=== PATIENT | female | born 1970 | race Caucasian/White ===

== ENCOUNTER 2018-02-06 07:48 | Observation (INO) ==
--- NOTE | 2018-02-06 08:41 | ED ---
HPI General Chief Complaint: Chest Pain Stated Complaint: Headache/Chest pain Time Seen by Provider: 02/06/18 08:29 History of Present Illness HPI narrative: The patient was seen and examined in the presence of the nurse. This patient complains of chest pain. She reported felt like a weight sitting on her chest. It was a heavy pressure located in the center sternum. Patient was seen here 3 weeks ago for chest pain but described a very different chest pain then. Severity is moderate. No alleviating factors. No exacerbating factors. Duration 1 day. Patient is primarily Albanian speaker. We will utilize formal translation. Complete Quality Measures for STEMI Alert Patients Related Data Home Medications Medication Instructions Recorded Confirmed metformin 1,000 mg PO BID 01/12/18 02/06/18 sitagliptin [Januvia] 25 mg PO DAILY 01/12/18 02/06/18 Previous Rx's Medication Instructions Recorded albuterol sulfate 2 inh INHALATION Q4-6H PRN #6.7 g 01/13/18 ciprofloxacin HCl [Cipro] 500 mg PO Q12H #14 tab 01/13/18 Allergies Allergy/AdvReac Type Severity Reaction Status Date / Time Penicillins Allergy Anaphylaxis Verified 02/06/18 08:08 Review of Systems Except as stated in HPI: all other systems reviewed are negative [facility] Medical History Medical History Diabetes (Acute) Asthma (Acute) Surgical History Surgical History Hx of appendectomy (Acute) History of partial hysterectomy (Acute) Social History Social History Substance History: No History of Abuse Second Hand Smoke Exposure: No Smoking Status: Never smoker How Often Do You Have a Drink Containing Alcohol: Never Recent Travel in [facility] within the Last 8 Weeks: No Recent Out of Country Travel within the Last 8 Weeks: No Immunization History Tetanus Immunization: Unsure Hx Influenza Vaccine This Season: Yes Exam Narrative Exam Narrative: GENERAL: Well-nourished, well-developed patient in no apparent distress. SKIN: Focused skin assessment reveals no rash and nodules. Skin is Warm and dry. HEAD: Atraumatic. Normocephalic. EYES: Pupils equal and round. No scleral icterus. No injection or drainage. ENT: No nasal bleeding or discharge. Mucous membranes pink and moist. NECK: Trachea midline. No JVD. CARDIOVASCULAR: Regular rate and rhythm. No murmur appreciated. RESPIRATORY: No accessory muscle use. Clear to auscultation. Breath sounds equal bilaterally. GASTROINTESTINAL: Abdomen soft, non-tender, nondistended. Hepatic and splenic margins not palpable. MUSCULOSKELETAL: No obvious deformities. No clubbing. No cyanosis. No edema. Some chest wall tenderness but cannot convincingly say that is her specific chest pain NEUROLOGICAL: Awake and alert. No obvious cranial nerve deficits. Motor grossly within normal limits. Normal speech. PSYCHIATRIC: Appropriate mood and affect; insight and judgment normal. Course Initial Documented Vital Signs Temperature 98.4 F 02/06/18 07:51 Pulse Rate 102 H 02/06/18 07:51 Respiratory Rate 18 02/06/18 07:51 Blood Pressure 160/90 H 02/06/18 07:51 Pulse Oximetry 99 02/06/18 07:51 Last Documented Vital Signs Temperature 98.4 F 02/06/18 07:51 Pulse Rate 83 02/06/18 11:14 Respiratory Rate 19 02/06/18 11:14 Blood Pressure 116/78 02/06/18 11:14 Pulse Oximetry 98 02/06/18 11:14 Medical Decision Making MDM Narrative Medical decision making narrative: IV placed and labs sent. I gave her aspirin. I reviewed her EKG which shows a normal EKG. I reviewed her chest x- ray which is normal Cardiac enzymes are normal. She has some mild hyperglycemia.She has risk factors for cardiac disease. The pain is not as atypical as it was 3 weeks ago and she was discharged from the ER and is entirely different. She will be a 23 hour observation on telemetry in the chest pain center in order to rule out cardiac cause of her symptoms. Differential Diagnosis Differential Diagnosis: Differential diagnosis includes TX, angina, pericarditis , pleurisy, GERD, anxiety. Medical Records Medical records reviewed: Yes I reviewed the patient's medical records. Reviewed her visit from January 13, 2018 for chest pain. Lab Data Result diagrams: 02/06/18 08:45 02/06/18 08:45 Lab Results 02/06/18 02/06/18 02/06/18 Range/Units 08:43 08:45 08:45 WBC 11.3 H (4.0-11.0) th/mm3 RBC 5.31 H (4.00-5.30) mil/mm3 Hgb 14.8 (11.6-15.3) gm/dL Hct 43.4 (35.0-46.0) % MCV 81.8 (80.0-100.0) fL MCH 27.9 (27.0-34.0) pg MCHC 34.1 (32.0-36.0) % RDW 12.9 (11.6-17.2) % Plt Count 256 (150-450) th/mm3 MPV 10.3 (7.0-11.0) fL Neut % (Auto) 77.1 H (16.0-70.0) % Lymph % (Auto) 17.6 (9.0-44.0) % [place] % (Auto) 4.3 (0.0-8.0) % Eos % (Auto) 0.8 (0.0-4.0) % Baso % (Auto) 0.2 (0.0-2.0) % Neut # (Auto) 8.7 H (1.8-7.7) th/mm3 Lymph # (Auto) 2.0 (1.0-4.8) th/mm3 [place] # (Auto) 0.5 (0.0-0.9) th/mm3 Eos # (Auto) 0.1 (0.0-0.4) th/mm3 Baso # (Auto) 0.0 (0.0-0.2) th/mm3 WBC Differential . Differential Comment Auto diff final PT 12.1 H (9.8-11.6) sec INR 1.2 Ratio APTT 25.9 (24.3-30.1) sec Sodium (136-145) meq/L Potassium (3.5-5.1) meq/L Chloride (98-107) meq/L Carbon Dioxide (21.0-32.0) meq/L Anion Gap (5-15) meq/L BUN (7-18) mg/dL Creatinine (0.50-1.00) mg/dL Estimated GFR (>89) mL/min POC Glucose 285 H (68-110) mg/dl Random Glucose (74-106) mg/dL Calcium (8.5-10.1) mg/dL Total Creatine Kinase (26-192) U/L Troponin I (0.02-0.05) ng/mL 02/06/18 02/06/18 Range/Units 08:45 08:45 WBC (4.0-11.0) th/mm3 RBC (4.00-5.30) mil/mm3 Hgb (11.6-15.3) gm/dL Hct (35.0-46.0) % MCV (80.0-100.0) fL MCH (27.0-34.0) pg MCHC (32.0-36.0) % RDW (11.6-17.2) % Plt Count (150-450) th/mm3 MPV (7.0-11.0) fL Neut % (Auto) (16.0-70.0) % Lymph % (Auto) (9.0-44.0) % [place] % (Auto) (0.0-8.0) % Eos % (Auto) (0.0-4.0) % Baso % (Auto) (0.0-2.0) % Neut # (Auto) (1.8-7.7) th/mm3 Lymph # (Auto) (1.0-4.8) th/mm3 [place] # (Auto) (0.0-0.9) th/mm3 Eos # (Auto) (0.0-0.4) th/mm3 Baso # (Auto) (0.0-0.2) th/mm3 WBC Differential Differential Comment PT (9.8-11.6) sec INR Ratio APTT (24.3-30.1) sec Sodium 137 (136-145) meq/L Potassium 3.6 (3.5-5.1) meq/L Chloride 102 (98-107) meq/L Carbon Dioxide 26.1 (21.0-32.0) meq/L Anion Gap 9 (5-15) meq/L BUN 7 (7-18) mg/dL Creatinine 0.61 (0.50-1.00) mg/dL Estimated GFR Greater than 89 (>89) mL/min POC Glucose (68-110) mg/dl Random Glucose 246 H (74-106) mg/dL Calcium 9.6 (8.5-10.1) mg/dL Total Creatine Kinase 45 (26-192) U/L Troponin I Less than 0.02 L (0.02-0.05) ng/mL Imaging Data Radiologist's impression: Chest X-Ray 02/06/18 08:35 CONCLUSION: 1. No acute cardiopulmonary disease. Discharge Plan Discharge Disposition Patient Disposition: 30 Still Patient Discharge Condition Condition: Stable Discharge Details Diagnosis: Chest pain in adult Physicians Team ED Provider: Manish Larsen Primary Care Provider: UNKNOWN, Rxs /Orders / Referrals /Forms Prescriptions: No Action sitagliptin [Januvia] 25 mg Tablet 25 mg PO DAILY RF: 0 metformin 1,000 mg Tablet 1,000 mg PO BID RF: 0 albuterol sulfate 90 mcg/actuation HFA aerosol inhaler 2 inh INHALATION Q4-6H PRN (Reason: shortness of breath or wheezing) Qty: 6.7 RF: 0 ciprofloxacin HCl [Cipro] 500 mg tablet 500 mg PO Q12H Qty: 14 RF: 0 Discharge Instructions Patient Printed Instructions: Chest Pain (ED) Discharge Interventions Interventions: Vital Signs Last Done: 02/06/18 08:54 Status ED Status: With Doctor
--- NOTE | 2018-02-06 09:04 | XR ---
EXAM DATE: 02/06/2018 9:01 AM EDT AGE/SEX: 47 years / Female INDICATIONS: Chest pain. CLINICAL DATA: This is the patient's initial encounter. Patient reports that signs and symptoms have been present for 2 days and indicates a pain score of 1/10. MEDICAL/SURGICAL HISTORY: . Chest pain for two days. No history of surgery or heart or lung pro blems. Non smoker. None. COMPARISON: [facility] [place] 1V SINGLE AP, 01/12/2018. . FINDINGS: A single AP view of the chest demonstrates the lungs to be symmetrically aerated without evidence of mass, infiltrate or effusion. The cardiomediastinal contours are unremarkable. Osseous structures a re intact. CONCLUSION: 1. No acute cardiopulmonary disease. Electronically signed by: Shad Pineda MD 02/06/2018 9:02 AM EDT
--- NOTE | 2018-02-06 09:39 | ECG ---
Date Performed: 02/06/2018 Time Performed: 08:40:34 PTAGE: 47 years EKG: Sinus rhythm NORMAL ECG PREVIOUS TRACING : 01/12/2018 19.23 No significant change from previous tracing noted. DOCTOR: Ankit Doe Interpretating Date/Time 02/06/2018 09:38:09
[2018-02-06 09:40] LABS: Baso % (Auto) 0.2 % (0.0-2.0); Eos # (Auto) 0.1 th/mm3 (0.0-0.4); Eos % (Auto) 0.8 % (0.0-4.0); Hematocrit 43.4 % (35.0-46.0); Hemoglobin 14.8 gm/dL (11.6-15.3); Lymph % (Auto) 17.6 % (9.0-44.0); Mean Corpuscular HGB Conc 34.1 % (32.0-36.0); Mean Corpuscular Hemoglobin 27.9 pg (27.0-34.0); Mean Corpuscular Volume 81.8 fL (80.0-100.0); Mean Platelet Volume 10.3 fL (7.0-11.0); Mono # (Auto) 0.5 th/mm3 (0.0-0.9); Mono % (Auto) 4.3 % (0.0-8.0); Neut # (Auto) 8.7 th/mm3 (1.8-7.7); Neut % (Auto) 77.1 % (16.0-70.0); Platelet Count 256 th/mm3 (150-450); Red Blood Count 5.31 mil/mm3 (4.00-5.30); Red Cell Distribution Width 12.9 % (11.6-17.2); White Blood Count 11.3 th/mm3 (4.0-11.0)
[2018-02-06 09:48] LABS: Activated Partial Thrombo Time 25.9 sec (24.3-30.1); INR 1.2 Ratio; Prothrombin Time 12.1 sec (9.8-11.6)
[2018-02-06 09:55] LABS: Anion Gap 9 meq/L (5-15); Blood Urea Nitrogen 7 mg/dL (7-18); Calcium 9.6 mg/dL (8.5-10.1); Carbon Dioxide 26.1 meq/L (21.0-32.0); Chloride 102 meq/L (98-107); Glomerular Filtration Rate Greater Than 89 mL/min (>89); Glucose,Random 246 mg/dL (74-106); Potassium 3.6 meq/L (3.5-5.1); Sodium 137 meq/L (136-145)
[2018-02-06 11:24] VITALS: O2SAT 98
[2018-02-06] MEDS ORDERED: Acetaminophen 500 MG Tablet PO PRN (11:53)
[2018-02-06] MEDS ORDERED: Dextrose 50% in Water 50 ML Vial IV.PUSH PRN (12:21)
[2018-02-06] MEDS ORDERED: Ketorolac Inj 30 MG/ML (IVP) Vial IV.PUSH ONE (13:43)
--- NOTE | 2018-02-06 13:43 | P.HPCA ---
History of Present Illness Primary Care Physician: UNKNOWN Chief Complaint: Chest pain History of Present Illness: 47 year old female with history of diabetes presents to ER for further evaluation of chest pain. Onset 2 days ago. Location left anterior chest. Characterized as tightness. No radiation. No associated symptoms of nausea, vomiting, dyspnea, or diaphoresis. No precipitating or relieving factors. No recent injury or illness. Nepalese speaking, utilized translating medical service during interview. - Diagnosis (1) Chest wall pain (2) H/O diabetes mellitus Review of Systems All other systems reviewed negative except as stated in HPI PMFSH - History History Provided By: Patient - Medical History Medical History: Medical History (Last Updated 02/06/18 @ 08:05 by David Jennings) Diabetes Asthma - Surgical History Surgical History: Surgical History (Last Updated 02/06/18 @ 08:05 by David Jennings) Hx of appendectomy History of partial hysterectomy - Tobacco History Second Hand Smoke Exposure: No Tobacco Use In Past 30 Days: No Smoking Status: Never smoker - Alcohol History How Often Do You Have a Drink Containing Alcohol: Never - Substance Use History Substance History: No History of Abuse - Travel History Recent Travel in the [place] Within the Last 8 Weeks: No Recent Travel Out of the Country Within the Last 8 Weeks: No - Immunization History Tetanus Immunization: Unsure Hx Influenza Vaccine This Season: Yes Medications and Allergies Active Medications: Active Medications Acetaminophen (Tylenol) 500 mg PO Q4H PRN PRN Reason: HEADACHE Dextrose (D50w Vial) 50 ml IV.PUSH UNSCH PRN PRN Reason: PER HYPOGLYCEMIA PROTOCOL Glucagon (Glucagon Inj) 1 mg OTHER UNSCH PRN PRN Reason: for Hypoglycemia Protocol Insulin Aspart (Novolog Insulin Correctional Sugar Inj) 0 unit SQ ACHS DARYL; Protocol Nitroglycerin (Nitrostat Sl) 0.4 mg SL Q5M PRN PRN Reason: CHEST PAIN Sodium Chloride (Ns Flush) 2 ml IV.FLUSH UNSCH PRN PRN Reason: FLUSH AFTER USING IV ACCESS Sodium Chloride (Ns Flush) 2 ml IV.FLUSH BID DARYL Allergies Allergy/AdvReac Type Severity Reaction Status Date / Time Penicillins Allergy Anaphylaxis Verified 02/06/18 08:08 Home Medications Medication Instructions Recorded Confirmed Type metformin 1,000 mg PO BID 01/12/18 02/06/18 History sitagliptin [Januvia] 25 mg PO DAILY 01/12/18 02/06/18 History Exam Vital signs: Vital Signs 02/06/18 07:51 02/06/18 07:54 02/06/18 08:35 Temperature 98.4 F Pulse Rate 102 H 91 H 85 Respiratory Rate 18 18 Blood Pressure 160/90 H 133/90 133/90 Pulse Oximetry 99 98 98 02/06/18 08:54 02/06/18 09:47 02/06/18 11:14 Temperature Pulse Rate 98 H 83 Respiratory Rate 20 19 Blood Pressure 117/80 116/78 Pulse Oximetry 98 96 98 02/06/18 12:33 Temperature Pulse Rate 78 Respiratory Rate 20 Blood Pressure 113/72 Pulse Oximetry 98 Intake & Output 02/05/18 02/06/18 02/06/18 18:59 06:59 18:59 Weight 58.513 kg Narrative: GENERAL: Alert WN, WD, NAD, pleasant, Nepalese-speaking female HEAD: NC, AT NECK: Supple, no masses, trachea midline CV: RRR, without murmur, rub, gallop, no JVD. No carotid bruits. Chest wall easily reproduced with light palpation. RESP: Clear lungs throughout bilateral, no crackles, wheeze, rhonchi, symmetrical chest rise, nonlabored, able to speak in full sentences ABD: Soft, NT, ND, no masses, positive bowel tones EXT: Pulses +2x4, no dependent edema MS: Normal tone x4 extremities, nontender, no obvious deformities, full range of motion NEURO: CN II through CN XII grossly intact, motor strength 5/5 PSYCH: A+O x3, pleasant affect, appropriate speech, mood, insight and judgment SKIN: Normal turgor, normal texture, no lesions, no rashes, even hair distribution Results 02/06/18 08:45 02/06/18 08:45 Cardiac Enzymes 02/06/18 Range/Units 08:45 Troponin I Less than 0.02 L (0.02-0.05) ng/mL Coagulation 02/06/18 Range/Units 08:45 PT 12.1 H (9.8-11.6) sec APTT 25.9 (24.3-30.1) sec CBC 02/06/18 Range/Units 08:45 WBC 11.3 H (4.0-11.0) th/mm3 RBC 5.31 H (4.00-5.30) mil/mm3 Hgb 14.8 (11.6-15.3) gm/dL Hct 43.4 (35.0-46.0) % Plt Count 256 (150-450) th/mm3 Neut # (Auto) 8.7 H (1.8-7.7) th/mm3 Lymph # (Auto) 2.0 (1.0-4.8) th/mm3 [place] # (Auto) 0.5 (0.0-0.9) th/mm3 Eos # (Auto) 0.1 (0.0-0.4) th/mm3 Baso # (Auto) 0.0 (0.0-0.2) th/mm3 Comprehensive Metabolic Panel 02/06/18 Range/Units 08:45 Sodium 137 (136-145) meq/L Potassium 3.6 (3.5-5.1) meq/L Chloride 102 (98-107) meq/L Carbon Dioxide 26.1 (21.0-32.0) meq/L BUN 7 (7-18) mg/dL Creatinine 0.61 (0.50-1.00) mg/dL Calcium 9.6 (8.5-10.1) mg/dL Intake and Output 02/05/18 02/06/18 02/06/18 22:59 06:59 14:59 Other: Weight 58.513 kg Patient Weight 02/07/18 06:59 Weight 58.513 kg EKG interpretations - EKG EKG results cardiology: sinus rhythm, normal axis, normal QRS, normal ST/T Caprini VTE Risk Assessment Caprini VTE Risk Assessment: No/Low Risk (score <= 1) Caprini Risk Assessment Model: Point Value = 1 Point Value = 2 Point Value = 3 Point Value = 5 Age 41-60 Minor surgery BMI > 25 kg/m2 Swollen legs Varicose veins or History of unexplained or recurrent spontaneous Oral contraceptives or hormone replacement Sepsis (< 1 month) Serious lung disease, including pneumonia (< 1 month) Abnormal pulmonary function Acute myocardial infarction Congestive heart failure (< 1 month) History of inflammatory bowel disease Medical patient at bed rest Age 61-74 Arthroscopic surgery Major open surgery (> 45 min) Laparoscopic surgery (> 45 min) Malignancy Confined to bed (> 72 hours) Immobilizing plaster cast Central venous access Age >= 75 History of VTE Family history of VTE Factor V Leiden Prothrombin [id number] Lupus anticoagulant Anticardiolipin antibodies Elevated serum homocysteine Heparin-induced thrombocytopenia Other congenital or acquired thrombophilia Stroke (< 1 month) Elective arthroplasty Hip, pelvis, or leg fracture Acute spinal cord injury (< 1 month) Prophylaxis Regimen: Total Risk Factor Score Risk Level Prophylaxis Regimen 0-1 Low Early ambulation 2 Moderate Order ONE of the following: *Sequential Compression Device (SCD) *Heparin 5000 units SQ BID 3-4 Higher Order ONE of the following medications: *Heparin 5000 units SQ TID *Enoxaparin/Lovenox 40 mg SQ daily (WT < 150 kg, CrCl > 30 mL/min) *Enoxaparin/Lovenox 30 mg SQ daily (WT < 150 kg, CrCl > 10-29 mL/min) *Enoxaparin/Lovenox 30 mg SQ BID (WT < 150 kg, CrCl > 30 mL/min) AND/OR *Sequential Compression Device (SCD) 5 or more Highest Order ONE of the following medications: *Heparin 5000 units SQ TID (Preferred with Epidurals) *Enoxaparin/Lovenox 40 mg SQ daily (WT < 150 kg, CrCl > 30 mL/min) *Enoxaparin/Lovenox 30 mg SQ daily (WT < 150 kg, CrCl > 10-29 mL/min) *Enoxaparin/Lovenox 30 mg SQ BID (WT < 150 kg, CrCl > 30 mL/min) AND *Sequential Compression Device (SCD) Assessment and Plan - Assessment (1) Chest wall pain Code(s): R07.89 - Other chest pain Status: Acute Plan: Admitted to chest pain center. Continue ruling out ACS initiated in ER. Discomfort clearly chest wall pain, however due to history of uncontrolled diabetes will proceed with exercise cardiac testing later this afternoon. Toradol 30mg IV x1 dose now. Verbalized understanding and agreeable to plan of care. (2) H/O diabetes mellitus Code(s): Z86.39 - Personal history of other endocrine, nutritional and metabolic disease Status: Chronic Plan: Hold oral glycemic's. SSI moderate dose coverage while in hospital. Reports taking insulin 3x day which in not reflected in home medication list. Will be instructed to continue home therapy regimen upon discharge. Diet education discussed in length via significant other assisting with translating. Instructed to follow up with primary care provider upon returning home to [place].
[2018-02-06 13:47] LABS: Creatine Kinase 40 U/L (26-192)
--- NOTE | 2018-02-06 15:16 | ECG ---
Date Performed: 02/06/2018 Time Performed: 12:27:03 PTAGE: 47 years EKG: Sinus rhythm NORMAL ECG PREVIOUS TRACING : 02/06/2018 08.40 Since previous tracing, no significant change noted DOCTOR: Nathan Sutton Interpretating Date/Time 02/06/2018 15:14:33
[2018-02-06 16:16] LABS: Creatine Kinase 31 U/L (26-192)
[2018-02-06] MEDS ORDERED: Insulin NovoLOG Aspart Correctional Sugar Inj SQ SCH (17:00)
--- NOTE | 2018-02-07 11:14 | TR ---
Date Performed: 02/06/2018 Time Performed: 15:40:36 DOCTOR: Nathan Sutton DRUG LIST: CLINICAL HISTORY: REASON FOR TEST: Chest pain REASON FOR ENDING: OBSERVATION: CONCLUSION: Gordon protocol attempted. Stopped sec to leg fatigue. Maximum DO=380 % Max HR Achiev ed=74.0 Maximum EI=647/70 Total Exercise Time=8:01. No reprod chest pain. Good exercise tolerance. [place] boptimal testing due to suboptimal target heart rate. Walked 8 minutes with excellent effort. No ecto py. No st t segment changes. Recovery quick and unremarkable. COMMENTS: submaximal test,negative for ischemia.
--- NOTE | 2018-02-07 12:11 | ECG ---
Date Performed: 02/06/2018 Time Performed: 15:03:15 PTAGE: 47 years EKG: Sinus rhythm NORMAL ECG PREVIOUS TRACING : 02/06/2018 12.27 Since previous tracing, no significant change noted DOCTOR: Nathan Sutton Interpretating Date/Time 02/07/2018 12:09:59
[2018-02-10 17:57] VITALS: BP 110/62; PULSE 70; RESP 20
[2018-02-10 18:17] VITALS: TEMP 98.6
== END 2018-02-06 18:16 | disposition home or self-care (01) ==
LOC: NEPGCP 07:48 → NEDA 07:48 → NEPC 07:48 → NEPGCP 11:52
DX: Z90.49 Acquired absence of other specified parts of digestive tract; Z79.84 Long term (current) use of oral hypoglycemic drugs; J45.909 Unspecified asthma, uncomplicated; Z90.710 Acquired absence of both cervix and uterus; Z88.0 Allergy status to penicillin; E11.9 Type 2 diabetes mellitus without complications; R07.89 Other chest pain